=== PATIENT | male | born 1980 | race Caucasian/White ===

== ENCOUNTER 2016-08-29 08:45 | Inpatient (IN) ==
[2016-08-29] MEDS ORDERED: PROPOFOL 1,000 MG/100 ML BOTTLE IV ONE (08:55)
[2016-08-29] MEDS: PROPOFOL 1,000 MG/100 ML BOTTLE IV SCH ×5 (09:23→22:30)
[2016-08-29 09:26] LABS: Allen Test Positive; Pt O2 Delivery Device Ventilator
[2016-08-29 09:27] LABS: ABG Base Excess -2.6 MMOL/L (-2.5-2.5); ABG HCO3 22.3 MMOL/L (20-26); ABG Oxygen Saturation 98.7 % (95-100); ABG PCO2 37.4 MM HG (35-48); ABG PH 7.379 (7.35-7.45); ABG TCO2 18.5 MMOL/L (23-27)
--- NOTE | 2016-08-29 09:41 | Emergency Department Note ---
Davie Edouard Brittany, am scribing for, and in the presence of, Dami Long MD 09:13. Ethan Edouard Sunil, MD, personally performed the services described in this documentation, ascribed by Melania Broderick in my presence, and it is both accurate and complete 941 . Arrival - Arrival Chief Complaint: Alcohol Intoxication Stated Complaint: transfer from [facility] ED Nursing Triage Note: pt transferred for [facility] for furthercare. pt is intubated. Mode of Arrival: Stretcher Limitations: Altered Mental Status Source: EMS, RN Notes Reviewed - History of Present Illness HPI Narrative: Patient is a 35 y/o white male presenting to the ED by EMS from [facility]. History is limited due to patient being intubated and no family in room to provide history. History was obtained from EMS reports and transferring facility report. Patient reportedly was aggressive,combative, and belligerent with family members early this morning due to EtOH intoxication. PD was called to the residence and he then became aggressive with them as well. EMS arrived and due to not being able to control patient, gave patient 8 mg Versed. Patient then notably had Respiratory Failure. He was then taken to [facility] for further evaluation and was intubated. He has no significant medical history, fairly healthy male. Allergies/Adverse Reactions: Allergies Allergy/AdvReac Type Severity Reaction Status Date / Time No Known Allergies Allergy Unverified 08/29/16 09:18 Review of System - Review of System ROS unobtainable: other (patient is intubated) Medical,Surgical,& Family Hx - Medical History Other: History of: Miscellaneous Medical Problems (lily parkinson syndrome) - Surgical History Surgical History: noncontributory - Family History Family History: noncontributory - Social History Smoking Status: Unknown if ever smoked Exam Vital Signs: Vital Signs Temperature 97.1 F L 08/29/16 09:36 Pulse Rate 95 H 08/29/16 09:36 Respiratory Rate 14 08/29/16 09:36 Blood Pressure 176/119 08/29/16 09:36 O2 Sat by Pulse Oximetry 100 08/29/16 08:52 - General Exam limited due to: ALOC, other (intubation) General appearance: in no apparent distress, obtunded - Head Head exam: Present: atraumatic, normocephalic - Eye Eye exam: Present: PERRL, EOMI - Neck Neck exam: Present: normal inspection - Chest Chest inspection: Present: normal inspection - Respiratory Respiratory exam: Present: normal lung sounds bilaterally - Cardiovascular Cardiovascular exam: Present: regular rate, normal rhythm, normal heart sounds - Abdominal Exam Abdominal exam: Present: soft, normal bowel sounds - Extremities Exam Extremities exam: Present: normal inspection - Back Exam Back exam: Present: normal inspection - Neurological Exam Neurological exam: Present: other (unable to assess secondary to intubation) - Skin Skin exam: Present: warm, dry Results - Labs Lab Results: I have reviewed the patients labs Labs: Laboratory Tests 08/29/16 09:24 ABG pH 7.379 ABG pCO2 37.4 ABG pO2 153.0 H ABG HCO3 22.3 ABG Total CO2 18.5 L ABG O2 Saturation 98.7 ABG Base Excess -2.6 L FiO2 40.00 - Impressions 35-year-old male without any significant past medical history was intubated for respiratory failure. Apparently this patient was violent at home after consuming large quantity of alcohol, when the EMS arrived to the house he was violent uncontrollable therefore he was needed to be given a large dose of Versed. On coming to the emergency room patient was not able to breathe he was in respiratory failure, the emergency room physician at [facility] needed to intubate this patient and ventilated. When I examined this patient he is on ventilator oxygen saturation is 100% his vital signs are normal, no obvious trauma noticed. CT scan of the head done and showed what was normal his alcohol blood level was 228 urine drug screen was positive for benzodiazepines. I discussed with the nurse practitioner on-call for the hospitalist who would come and see the patient Disposition Clinical Impression: Alcohol intoxication, Respiratory failure Case discussed with: other Disposition: Still a Patient Condition: Critical
--- NOTE | 2016-08-29 10:34 | Hospitalist History & Physical ---
<Silas Man - Last Filed: 08/29/16 10:24> Assessment and Plan - Time spent with patient Time spent with patient: Less than 30 minutes (1) Alcohol intoxication Status: Acute Assessment and plan: External facility records: alcohol level 228. Withdrawal protocol PRN. Current Visit: Yes (2) Respiratory failure Status: Acute Assessment and plan: Patient arrived intubated and sedated. We will slowly wean off mechanical ventilation. Current Visit: Yes History of Present Illness Chief complaint: Alcohol intoxication History of present illness: Mr. Phillips is a 35 year old white male with no significant past medical history who presents via EMS as a transfer from [facility] for further evaluation of alcohol intoxication. On exam, the patient is intubated and sedated with propofol, therefore history is limited to ER and external facility records. Per ER documentation, this patient was reportedly aggressive, combative and belligerent with family members early this morning after becoming intoxicated. the patient was also combative with the police when they came to the residence. Once EMS arrived on the scene, the patient was given 8mg of versed and taken to [facility] where he was intubated. He was then transferred here for further evaluation. On physical exam, the patient does have several abrasions on his hands bilaterally, left shoulder and right lateral torso. He will be admitted to the ICU for vent weaning and management of withdrawal symptoms. He is presumed a full code at this time. This case has been discussed with both Dr. Long, ED physician, and Dr. Antunez, admitting hospitalist. No home meds on file at this time. Home Medications Medication Instructions Recorded Confirmed Type No Known Home Medications [No 08/29/16 08/29/16 History Known Home Medications] Allergies Allergy/AdvReac Type Severity Reaction Status Date / Time No Known Allergies Allergy Unverified 08/29/16 09:18 Medical,Surgical,& Family Hx - Medical History Other: History of: Miscellaneous Medical Problems (lily parkinson syndrome) - Family History Family History: Reports;: Family Hypertension - Social History Smoking Status: Unknown if ever smoked Frequency of Alcohol Use: Frequently Type of Drug Use: Unknown Marital Status: Lives With:: Spouse Functional capacity: independent ambulation ROS unobtainable: due to endotracheal tube Exam - Constitutional Vitals: Period Temp Pulse Resp BP Sys/Gannon Pulse Ox Last 24 Hr 97.1 F-97.1 F 71-95 14-16 125-176/96-119 100-100 Exam: General appearance: normal weight, intubated and sedated - Head Head exam: Present: normocephalic, atraumatic - Eye Eye exam: Present: EOMI. Absent: conjunctival injection, nystagmus Pupils: Present: BARRON, normal accommodation - ENT ENT exam: Present: normal exam, normal external ear exam - Neck Neck exam: Present: normal inspection. Absent: lymphadenopathy, tenderness, thyromegaly - Respiratory Respiratory exam: Present: clear to auscultation bilaterally. Absent: rales, rhonchi, wheezes - Cardiovascular Cardiovascular exam: Present: regular rate and rhythm. Absent: carotid bruit, gallop, rubs - GI/Abdominal GI/Abdominal exam: Present: normal bowel sounds. Absent: ascites, distended, mass - Extremities Exam Extremities exam: Present: normal inspection, normal capillary refill, abrasions bilaterally to the hands, shoulders and torso absent: edema - Back Exam Back exam: Unable to assess due to endotracheal tube placement - Neurological Exam Neurological exam: Present: Unable to assess due to intubation and sedation. - Psychiatric Psychiatric exam: Present: Unable to assess due to intubation and sedation. - Skin Skin exam: Present: normal color, warm, dry, abrasions <Drake Antunez - Last Filed: 08/29/16 16:34> Assessment and Plan - Time spent with patient Time spent with patient: Greater than 30 minutes (I saw and examed pt in his ER room today. I reviewed pt's lab results today. I agree with history, physical, assessment, and plan listed as above by our PA. Will repeat ABG to adjust Vent setting this afternoon. Repeat ABG in am and consult Pulm in am. Switch IVF to banana bag alternating with IV D5NS with KCl. Continue sedation. Reeval in am. Adm to ICU today for in pt care. Time spent: 55 min including chart review.) History of Present Illness History of present illness: Mr. Phillips is a 35 year old male Exam - Constitutional Vitals: Period Temp Pulse Resp BP Sys/Gannon Pulse Ox Last 24 Hr 97.1 F-97.8 F 71-111 4-16 120-176/79-119 100-100 Results - Labs CBC & BMP: 08/29/16 11:13 08/29/16 11:13
[2016-08-29] MEDS ORDERED: ACETAMINOPHEN 325 MG TABLET PO PRN (10:44)
[2016-08-29] MEDS ORDERED: SODIUM CHLORIDE 0.9% 1,000 ML IV SCH (11:00)
[2016-08-29 11:18] LABS: Basophils # 0.1 10*3/uL (0.0-0.2); Basophils % 0.4 % (0.0-0.8); Eosinophils % 0.3 % (0.00-10.9); Hematocrit 48.3 VOL% (42.0-52.0); Hemoglobin 16.7 GM/DL (14.0-18.0); Immature Granulocytes % 0.4 %; Immature Granulocytes Absolute 0.05 #; Lymphocytes # 1.2 10*3/uL (1.4-4.0); Lymphocytes % 10.3 % (21.2-54.2); Mean Corpuscular HGB Conc 34.6 GM/DL (32-36); Mean Corpuscular Hemoglobin 34 PG (27-34); Monocytes # 0.9 10*3/uL (0.11-0.8); Monocytes % 7.7 % (1.7-12.7); Neutrophils % 80.9 % (38.7-73.9); Platelet Count 217 T/CUMM (130-400); Red Blood Count 4.98 MC/CUMM (3.8-5.5); Red Cell Distribution Width 13.4 % (9.3-17.3); White Blood Count 11.2 T/CUMM (4-12)
[2016-08-29 11:28] LABS: Partial Thromboplastin Time 26.1 SECS (0-40)
[2016-08-29 11:33] LABS: Barbiturates Screen,Urine Negative (Negative); Benzodiazepines Screen,Urine Positive (Negative); Cannabinoid Screen,Urine Negative (Negative); Opiate Screen,Urine Negative (Negative); Phencyclidine Screen,Urine Negative (Negative)
[2016-08-29 11:50] LABS: Albumin 4.3 G/DL (3.4-5.0); Bilirubin,Total 0.7 MG/DL (0.2-1.0); Calcium 8.7 MG/DL (8.5-10.1); Osmolality,Calculated 287.8 MOS/KG (273-304); Potassium 4.3 MMOL/L (3.5-5.1); Total Protein 7.1 G/DL (6.4-8.3)
[2016-08-29 11:52] LABS: Albumin 3.9 G/DL (3.4-5.0); Bilirubin,Direct 0.2 MG/DL (0.0-0.20); Bilirubin,Indirect 0.7 MG/DL (0.0-1.0); Bilirubin,Total 0.9 MG/DL (0.2-1.0); Total Protein 6.7 G/DL (6.4-8.3)
[2016-08-29 12:03] LABS: Folate 5.4 NG/ML (5.4-24.0)
[2016-08-29 14:35] LABS: Apearance,Urine CLOUDY (Clear); Bacteria,Urine Occasional /HPF (Few); Bilirubin,Urine Negative (Negative); Blood, Urine Small mg/dL (Negative); Glucose,Urine (UA) Negative (Negative); Ketones,Urine Negative (Negative); Mucus,Urine Occasional /LPF (Occasional); Nitrite,Urine Negative (Negative); Protein,Urine Negative; RBC,Urine 3 /HPF (0-4); Uric Acid Crystals,Urine Moderate /HPF (<1); Urine Color Yellow (Yellow); Urine Specific Gravity 1.009 (1.001-1.035); Urine Urobilinogen < 2.0 EU/DL (0.2-1.0); WBC,Urine 3 /HPF (0-6)
[2016-08-29 16:21] LABS: ABG Base Excess -0.3 MMOL/L (-2.5-2.5); ABG HCO3 24.2 MMOL/L (20-26); ABG PCO2 43.1 MM HG (35-48); ABG PH 7.375 (7.35-7.45); ABG TCO2 21.3 MMOL/L (23-27); Allen Test Positive; Pt O2 Delivery Device Ventilator
[2016-08-29] MEDS: DEXT 5% NACL 0.45% KCL 10 MEQ 10 MEQ/1,000 ML BAG IV SCH (17:00)
[2016-08-29] MEDS: THIAMINE INJ 100 MG, FOLIC ACID INJ 1 MG, MULTIVITAMIN INJ 10 ML in SODIUM CHLORIDE 0.9... IV SCH (18:00)
[2016-08-29] MEDS: LORazepam 2 MG/1 ML VIAL IV PRN ×2 (20:25→23:30)
[2016-08-30] MEDS: PROPOFOL 1,000 MG/100 ML BOTTLE IV SCH ×8 (01:11→22:34)
[2016-08-30 03:27] LABS: ABG Base Excess 2.5 MMOL/L (-2.5-2.5); ABG HCO3 26.6 MMOL/L (20-26); ABG Oxygen Saturation 97.5 % (95-100); ABG PH 7.449 (7.35-7.45); ABG PO2 88.3 MM HG (80-95); ABG TCO2 22.3 MMOL/L (23-27); Allen Test Positive; Pt O2 Delivery Device Ventilator
[2016-08-30] MEDS: DEXT 5% NACL 0.45% KCL 10 MEQ 10 MEQ/1,000 ML BAG IV SCH ×2 (04:07→15:12)
[2016-08-30 05:41] LABS: Basophils % 0.4 % (0.0-0.8); Calcium 7.9 MG/DL (8.5-10.1); Eosinophils # 0.1 10*3/uL (0.0-0.87); Eosinophils % 0.5 % (0.00-10.9); Hematocrit 48.9 VOL% (42.0-52.0); Hemoglobin 15.9 GM/DL (14.0-18.0); Immature Granulocytes % 0.4 %; Immature Granulocytes Absolute 0.04 #; Lymphocytes # 1.6 10*3/uL (1.4-4.0); Lymphocytes % 15.5 % (21.2-54.2); Mean Corpuscular HGB Conc 32.5 GM/DL (32-36); Mean Corpuscular Hemoglobin 33 PG (27-34); Mean Corpuscular Volume 102.1 FL (87-102); Mean Platelet Volume 11.1 FL (9.6-12.0); Monocytes # 1.4 10*3/uL (0.11-0.8); Monocytes % 13.3 % (1.7-12.7); Neutrophils # 7.2 10*3/uL (1.4-7.4); Neutrophils % 69.9 % (38.7-73.9); Platelet Count 149 T/CUMM (130-400); Red Blood Count 4.79 MC/CUMM (3.8-5.5); Red Cell Distribution Width 13.5 % (9.3-17.3); White Blood Count 10.3 T/CUMM (4-12)
[2016-08-30 05:42] LABS: Potassium 4.5 MMOL/L (3.5-5.1)
--- NOTE | 2016-08-30 07:24 | XRay Report ---
Exam: XR chest 1V portable Date: 08/30/2016 4:00 AM Indication: Follow-up ventilator Comparison: 08/29/2016 Technical: AP portable Findings: Endotracheal tube nasogastric tube and external cardiac leads are present. Some interstitial thickening in the infrahilar regions bilaterally. No obvious effusions. Mediastinum is otherwise intact. No pneumothorax.. The heart is normal in size. Impression: 1. Stable appearance of life support tubing 2. Persistent interstitial infiltrates in the perihilar regions and/or component of scarring PROCEDURE INTERPRETED AT [facility] DEPARTMENT OF RADIOLOGY Final Report Signed by: Dr. Gus Demarco
[2016-08-30] MEDS: LORazepam 2 MG/1 ML VIAL IV PRN ×4 (07:42→20:47)
--- NOTE | 2016-08-30 08:03 | Pulmonology Consult Note ---
Assessment and Plan (1) On mechanically assisted ventilation Status: Acute Assessment and plan: The patient is stable on the ventilator and was intubated to protect his airway. Will extubate him when he is more calm and alert Current Visit: Yes (2) Alcohol intoxication Status: Acute Assessment and plan: Patient is sleeping off his alcohol intoxication. He should be okay fairly soon. Current Visit: Yes History of Present Illness Chief complaint: Ventilator management History of present illness: Mr. Phillips is a 35 year old white male that apparently has been in the and has posttraumatic stress disorder. Patient apparently was out drinking with friends and became intoxicated. He then became very combative and very agitated . The police had to bring him to the emergency room where he had to be sedated and was placed on the ventilator. His drug screen was positive for benzodiazepines but he was given Versed to intubate him. He was intoxicated. He has no history of heart or lung problems. He is stable on the ventilator. Home Medications Medication Instructions Recorded Confirmed Type No Known Home Medications [No 08/29/16 08/29/16 History Known Home Medications] Allergies Allergy/AdvReac Type Severity Reaction Status Date / Time No Known Allergies Allergy Unverified 08/29/16 09:18 ROS unobtainable: due to endotracheal tube (Patient is sedated on the ventilator at present) Exam (Pulmonay) H&P - Constitutional Vitals: Period Temp Pulse Resp BP Sys/Gannon Pulse Ox Last 24 Hr 97.1 F-99.2 F 71-111 4-19 120-176/79-119 95-100 General appearance: normal weight, no acute distress (He is comfortable on the ventilator.) - Head Head exam: Present: normal inspection, normocephalic - Eye Eye exam: Present: EOMI. Absent: scleral icterus Pupils: Present: BARRON - ENT ENT exam: Present: other (ET tube is in good position) - Neck Neck exam: Present: normal inspection. Absent: lymphadenopathy, thyromegaly - Respiratory Respiratory exam: Present: clear to auscultation bilaterally - Cardiovascular Cardiovascular exam: Present: regular rate and rhythm. Absent: gallop, systolic murmur - GI/Abdominal GI/Abdominal exam: Present: normal bowel sounds, soft. Absent: organomegaly, tenderness - Extremities Exam Extremities exam: Present: other (He has some abrasions on his extremities and trunk). Absent: calf tenderness, edema - Neurological Exam Neurological exam: Present: other (He is sedated on the ventilator) - Psychiatric Psychiatric exam: Absent: anxious (He is sedated at present) - Skin Skin exam: Present: warm, dry Medical,Surgical,& Family Hx - Medical History Other: History of: Miscellaneous Medical Problems (lily parkinson syndrome) - Family History Family History: Reports;: Family Hypertension - Social History Smoking Status: Unknown if ever smoked Frequency of Alcohol Use: Frequently Type of Drug Use: Unknown Results - Labs CBC & BMP: 08/30/16 04:12 08/30/16 04:12 Labs: PO2 is 88 with a PCO2 38 and a pH of 7.44 - Diagnostic Findings Procedure: Chest x-ray: image reviewed by me, report reviewed by me (Chest x- ray is clear)
[2016-08-30] MEDS: PANTOPRAZOLE 40 MG VIAL IV SCH (09:02)
--- NOTE | 2016-08-30 10:38 | Hospitalist Progress Note ---
Assessment and Plan (1) Alcohol intoxication Status: Acute Assessment and plan: With respiratory failure requiring mechanical ventilation Current Visit: Yes Qualifiers: Complication of substance-induced condition: with unspecified complication Qualified Code(s): F10.929 - Alcohol use, unspecified with intoxication, unspecified (2) Respiratory failure Status: Acute Current Visit: Yes Qualifiers: Chronicity: acute Respiratory failure complication: unspecified whether with hypoxia or hypercapnia Qualified Code(s): J96.00 - Acute respiratory failure, unspecified whether with hypoxia or hypercapnia (3) On mechanically assisted ventilation Status: Acute Current Visit: Yes Hospitalist: Subjective Interval history: Patient seen and examined. No acute events overnight. Case discussed with nursing staff. Labs reviewed. Patient resting comfortably on the ventilator, sedated with Diprivan. Pulmonary consult reviewed Exam - Constitutional Vitals: Period Temp Pulse Resp BP Sys/Gannon Pulse Ox Last 24 Hr 97.2 F-99.5 F 75-111 4-19 120-170/75-104 95-100 Exam: Constitutional System: No distress. No tremulousness. Head: Normocephalic, atraumatic. Ears, Nose and Throat System: No pain or tenderness. No epistaxis or discharge. Endotracheal tube in place Eyes System: Pupils equal, round, and reactive. Extraocular muscles intact. Neck: Supple, without adenopathy, No jugular venous distention. No thyromegaly, neck mass, or prior surgery apparent. Respiratory System: Chest clear to auscultation. Cardiovascular System: Heart with regular rate and rhythm. No murmur. GI System: Abdomen soft, nontender. Normo active bowel sounds present. Musculoskeletal System: limbs with no pedal edema. Full distal pulses. Neurological System: Unable to assess secondary to sedation with the prevent Psychiatric System: Unable to assess secondary to mental status and sedation Results - Labs CBC & BMP: 08/30/16 04:12 08/30/16 04:12 Lab Results: I have reviewed the past 24 hour labs
[2016-08-30] MEDS: BACITRACIN OINT 0.9 GM PACK TOP SCH (11:46)
[2016-08-30] MEDS: THIAMINE INJ 100 MG, FOLIC ACID INJ 1 MG, MULTIVITAMIN INJ 10 ML in SODIUM CHLORIDE 0.9... IV SCH (17:12)
[2016-08-31] MEDS: PROPOFOL 1,000 MG/100 ML BOTTLE IV SCH ×2 (02:15→06:00)
[2016-08-31] MEDS: DEXT 5% NACL 0.45% KCL 10 MEQ 10 MEQ/1,000 ML BAG IV SCH (02:19)
[2016-08-31] MEDS: LORazepam 2 MG/1 ML VIAL IV PRN ×2 (03:05→12:05)
[2016-08-31 05:37] LABS: Basophils % 0.5 % (0.0-0.8); Eosinophils # 0.2 10*3/uL (0.0-0.87); Eosinophils % 2.2 % (0.00-10.9); Hematocrit 43.8 VOL% (42.0-52.0); Hemoglobin 14.6 GM/DL (14.0-18.0); Immature Granulocytes % 0.4 %; Immature Granulocytes Absolute 0.03 #; Lymphocytes # 1.3 10*3/uL (1.4-4.0); Lymphocytes % 15.7 % (21.2-54.2); Mean Corpuscular HGB Conc 33.3 GM/DL (32-36); Mean Corpuscular Hemoglobin 33 PG (27-34); Mean Corpuscular Volume 100.2 FL (87-102); Mean Platelet Volume 11.5 FL (9.6-12.0); Monocytes % 11.8 % (1.7-12.7); Neutrophils # 5.9 10*3/uL (1.4-7.4); Neutrophils % 69.4 % (38.7-73.9); Platelet Count 157 T/CUMM (130-400); Red Blood Count 4.37 MC/CUMM (3.8-5.5); Red Cell Distribution Width 13.2 % (9.3-17.3); White Blood Count 8.5 T/CUMM (4-12)
[2016-08-31 05:48] LABS: Calcium 7.8 MG/DL (8.5-10.1); Osmolality,Calculated 285.8 MOS/KG (273-304); Potassium 4.6 MMOL/L (3.5-5.1)
--- NOTE | 2016-08-31 07:37 | Pulmonology Progress Note ---
Pulmonary - PN: Subj Interval history: Patient is a 35-year-old white man that has a history of having a posttraumatic stress disorder. He apparently became intoxicated with alcohol and was very agitated and belligerent and was ultimately intubated and he has been on the ventilator for couple days now. He has been stable on the ventilator and does arouse. He is a little agitated when off sedation. He is otherwise not having any problems. He should be able to come off the ventilator. Exam (Progress Note) - Constitutional Vitals: Period Temp Pulse Resp BP Sys/Gannon Pulse Ox Last 24 Hr 97.3 F-99.5 F 66-90 14-21 105-140/69-96 96-100 Exam: General appearance: normal weight, no acute distress (He is comfortable on the ventilator. His O2 saturations are adequate.) - Head Head exam: Present: normal inspection, normocephalic - Eye Eye exam: Present: EOMI. Absent: scleral icterus Pupils: Present: BARRON - ENT ENT exam: Present: other (ET tube is in good position) - Neck Neck exam: Present: normal inspection. Absent: lymphadenopathy, thyromegaly - Respiratory Respiratory exam: Present: clear to auscultation bilaterally. He is moving air well without any wheezing. - Cardiovascular Cardiovascular exam: Present: regular rate and rhythm. Absent: gallop, systolic murmur - GI/Abdominal GI/Abdominal exam: Present: normal bowel sounds, soft. Absent: organomegaly, tenderness - Extremities Exam Extremities exam: Present: other (He has some abrasions on his extremities and trunk). Absent: calf tenderness, edema - Neurological Exam Neurological exam: Present: other (He is sedated on the ventilator) - Psychiatric Psychiatric exam: Absent: anxious (He is sedated at present. He does arouse okay.) - Skin Skin exam: Present: warm, dry Results - Labs CBC & BMP: 08/31/16 04:20 08/31/16 04:20 Assessment and Plan (1) On mechanically assisted ventilation Status: Acute Assessment and plan: The patient is stable on the ventilator and was intubated to protect his airway. He has been quite stable we will try to extubate today. Current Visit: Yes (2) Alcohol intoxication Status: Acute Assessment and plan: Patient is sleeping off his alcohol intoxication. He is stable and should do okay off the ventilator. Current Visit: Yes Qualifiers: Complication of substance-induced condition: with unspecified complication Qualified Code(s): F10.929 - Alcohol use, unspecified with intoxication, unspecified
[2016-08-31] MEDS ORDERED: 1: THIAMINE INJ 100 MG, FOLIC ACID INJ 1 MG, MULTIVITAMIN INJ 10 ML in SODIUM CHLORIDE 0 IV SCH (08:00)
[2016-08-31] MEDS ORDERED: ZIPRASIDONE 20 MG/1 ML VIAL IM ONE (09:00)
[2016-08-31] MEDS ORDERED: HALOPERIDOL 5 MG/ML AMP ONE (09:20)
[2016-08-31] MEDS ORDERED: HALOPERIDOL 5 MG/ML AMP IV ONE (09:34)
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
[2016-08-31] MEDS ORDERED: HALOPERIDOL 5 MG/ML AMP IV PRN (14:34)
[2016-08-31] MEDS ORDERED: ZIPRASIDONE 20 MG/1 ML VIAL IM PRN (14:34)
[2016-08-31] MEDS ORDERED: LORazepam 2 MG/1 ML VIAL IV PRN (14:35)
[2016-08-31] MEDS: PANTOPRAZOLE 40 MG VIAL IV SCH (16:13)
[2016-08-31] MEDS: BACITRACIN OINT 0.9 GM PACK TOP SCH (16:35)
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
[2016-09-01 08:35] VITALS: BP 152/91
[2016-09-01] MEDS ORDERED: THIAMINE 200 MG/2 ML VIAL IV SCH (09:00)
[2016-09-01] MEDS ORDERED: FOLIC ACID 5 MG/1 ML VIAL IV SCH (09:00)
== END 2016-08-31 17:50 | DRG 208 ==
LOC: N.ED 08:45 → N.EDINP 09:38 → SUATTDRO 09:38 → N.EDINP 10:17 → N.CC 10:42
PROVIDERS: ADMIT Internal Medicine; ATTEND Family Medicine